=== PATIENT | female | born 1990 | race American Indian/Alaskan Native ===

== ENCOUNTER 2021-12-04 11:19 | Emergency (ER) | payer SELFPAY ==
--- NOTE | 2021-12-04 13:18 | Emergency Department Report ---
ED Female HPI - General Chief complaint: Vaginal Bleeding Stated complaint: BLEEDING Time Seen by Provider: 12/04/21 13:13 Source: patient Mode of arrival: Ambulatory Limitations: No Limitations - History of Present Illness Initial comments: Patient is a 31-year-old female that comes to the emergency room with vaginal bleeding. She found out that she was on Wednesday. This is her first . She has not seen an ENGINEERING ASSISTANT. She denies abdominal pain. Denies vaginal discharge. Denies back pain. She is ambulatory, nontoxic no [id number] on arrival. MD Complaint: vaginal bleeding -: Sudden Severity: mild Severity scale (0 -10): 2 Worsens with: none Are you Now?: Yes Associated Symptoms: denies other symptoms, vaginal bleeding. denies: vaginal discharge, abdominal pain, nausea/vomiting, fever/chills, headaches, loss of appetite, dysuria, hematuria, rash, seizure, shortness of breath, syncope, weakness - Related Data Sexually active: Yes Home Medications Medication Instructions Recorded Confirmed Last Taken No Known Home Medications [No 12/04/21 12/04/21 Unknown Reported Home Medications] Allergies Allergy/AdvReac Type Severity Reaction Status Date / Time No Known Allergies Allergy Verified 12/04/21 16:47 ED Review of Systems ROS: Stated complaint: BLEEDING Other details as noted in HPI Comment: All other systems reviewed and negative ED Past Medical Hx - Past Medical History Previous Medical History?: No - Surgical History Past Surgical History?: No - Family History Family history: no significant - Social History Smoking Status: Never Smoker Substance Use Type: None - Medications Home Medications: Home Medications Medication Instructions Recorded Confirmed Last Taken Type No Known Home Medications [No 12/04/21 12/04/21 Unknown History Reported Home Medications] ED Physical Exam - General Limitations: No Limitations General appearance: alert, in no apparent distress - Head Head exam: Present: atraumatic, normocephalic - Eye Eye exam: Present: normal appearance - ENT ENT exam: Present: mucous membranes moist - Neck Neck exam: Present: normal inspection - Respiratory Respiratory exam: Present: normal lung sounds bilaterally. Absent: respiratory distress - Cardiovascular Cardiovascular Exam: Present: regular rate, normal rhythm. Absent: systolic murmur, diastolic murmur, rubs, gallop - GI/Abdominal GI/Abdominal exam: Present: soft, normal bowel sounds - Extremities Exam Extremities exam: Present: normal inspection - Back Exam Back exam: Present: normal inspection - Neurological Exam Neurological exam: Present: alert, oriented X3 - Psychiatric Psychiatric exam: Present: normal affect, normal mood - Skin Skin exam: Present: warm, dry, intact, normal color. Absent: rash ED Course Vital Signs 12/04/21 12/04/21 11:33 16:44 Temperature 97 F L 97.9 F Pulse Rate 90 88 Respiratory 18 20 Rate Blood Pressure 151/64 124/78 [Right] O2 Sat by Pulse 99 100 Oximetry ED Medical Decision Making - Lab Data Result diagrams: 12/04/21 13:20 12/04/21 13:20 - Radiology Data Radiology results: report reviewed, image reviewed IUP - Medical Decision Making Vital Signs 12/04/21 11:33 Temperature 97 F L Pulse Rate 90 Respiratory 18 Rate Blood Pressure 151/64 [Right] O2 Sat by Pulse 99 Oximetry Labs 12/04/21 12/04/21 12/04/21 13:20 13:20 13:20 WBC 10.1 RBC 5.02 Hgb 14.1 Hct 42.3 MCV 84 MCH 28 MCHC 33 RDW 13.7 Plt Count 289 Sodium 136 L Potassium 4.0 Chloride 100.8 Carbon Dioxide 25 Anion Gap 14 BUN 4 L Creatinine 0.7 Estimated GFR > 60 BUN/Creatinine Ratio 6 Glucose 90 Calcium 9.9 Total Bilirubin 0.30 AST 12 ALT 16 Alkaline Phosphatase 67 Total Protein 7.0 Albumin 4.7 Albumin/Globulin Ratio 2.0 HCG, Quant Urine Color Urine Turbidity Urine pH Ur Specific [place] Urine Protein Urine Glucose (UA) Urine Ketones Urine Blood Urine Nitrite Urine Bilirubin Urine Urobilinogen Ur Leukocyte Esterase Urine WBC (Auto) Urine RBC (Auto) U Epithel Cells (Auto) Urine HCG, Qual Blood Type O POSITIVE Ord Rhogam Gestat Weeks Rh pos 12/04/21 12/04/21 13:20 Unknown WBC RBC Hgb Hct MCV MCH MCHC RDW Plt Count Sodium Potassium Chloride Carbon Dioxide Anion Gap BUN Creatinine Estimated GFR BUN/Creatinine Ratio Glucose Calcium Total Bilirubin AST ALT Alkaline Phosphatase Total Protein Albumin Albumin/Globulin Ratio HCG, Quant 94581 H Urine Color Straw Urine Turbidity Clear Urine pH 8.0 H Ur Specific [place] 1.010 Urine Protein <15 mg/dl Urine Glucose (UA) Neg Urine Ketones Neg Urine Blood Sm Urine Nitrite Neg Urine Bilirubin Neg Urine Urobilinogen < 2.0 Ur Leukocyte Esterase Neg Urine WBC (Auto) < 1.0 Urine RBC (Auto) 1.0 U Epithel Cells (Auto) 5.0 Urine HCG, Qual Positive A Blood Type Ord Rhogam Gestat Weeks Patient has been informed of the results of her test. IUP with no ectopic. Rh+. Patient has minimalvaginal bleeding. Patient being discharged home with discharge plan of care including diet, activity, medications and follow-up. Patient understands that she needs to see ENGINEERING ASSISTANT in 48 hours for recheck of her beta quant. She has been advised on pelvic rest and use of Tylenol for pain. She verbalizes understanding On discharge patient ambulatory, not ill nontoxic taking p.o. and in no acute distress - Differential Diagnosis ro preg/ectopic/ab Critical care attestation.: If time is entered above; I have spent that time in minutes in the direct care of this critically ill patient, excluding procedure time. ED Disposition Clinical Impression: Vaginal bleeding during Disposition: 01 HOME / SELF CARE / HOMELESS Is pt being admited?: No Does the pt Need Aspirin: No Condition: Stable Instructions: Vaginal Bleeding During , First Trimester Additional Instructions: Pelvic rest Diet and activity as tolerated Tylenol for pain Stay well-hydrated Follow-up with ENGINEERING ASSISTANT IN 48 HOURS FOR RECHECK. Have given you referral below. Referrals: PRIMARY CARE, [Primary Care Provider] - 3-5 Days SILVESTRE PATEL MD [Staff Physician] - 3-5 Days Time of Disposition: 13:51
[2021-12-04 13:34] LABS: Hematocrit 42.3 % (30.3-42.9); Hemoglobin 14.1 gm/dl (10.1-14.3); Mean Corpuscular HGB Conc 33 % (30-34); Mean Corpuscular Volume 84 fl (79-97); Platelet Count 289 K/mm3 (140-440); Red Blood Count 5.02 M/mm3 (3.65-5.03); Red Cell Distribution Width 13.7 % (13.2-15.2)
[2021-12-04 14:32] LABS: BUN/Creatinine Ratio 6; Blood Urea Nitrogen 4 mg/dL (7-17); Calcium 9.9 mg/dL (8.4-10.2)
[2021-12-04 14:33] LABS: Alanine Aminotransferase 16 units/L (7-56); Albumin 4.7 g/dL (3.9-5); Hemolysis Index 8
[2021-12-04 16:46] LABS: Bilirubin,Urine NEG (Negative); Blood,Urine SM (Negative); Color,Urine Straw (Yellow); Protein,Urine <15 mg/dL mg/dL (Negative); Urobilinogen,Urine < 2.0 mg/dL (<2.0); WBC,Urine < 1.0 /HPF (0.0-6.0)
[2021-12-04 16:47] VITALS: BP 124/78
[2021-12-04 16:50] LABS: HCG Qualitative,Urine Positive (Negative)
--- NOTE | 2021-12-04 16:50 | Ultrasound Report ---
ULTRASOUND OBSTETRIC INDICATION / CLINICAL INFORMATION: abd pain. Clinical Gestational Age (GA) in weeks, days: Unknown TECHNIQUE: Transabdominal and Transvaginal. COMPARISON: None available. FINDINGS: GESTATIONAL SAC: Well-defined oval shape and intrauterine in location. YOLK SAC: No significant abnormality. EMBRYO/FETUS: No significant abnormality. - [place]-Rump Length = 0.9 cm = 7, 0 weeks, days - Heart Rate, beats per minute (if present) = 133 ADNEXA: No significant abnormality. FREE FLUID: None. ADDITIONAL FINDINGS: Small subchorionic hemorrhage. IMPRESSION: 1. Single, living intrauterine with estimated sonographic age of 7, 0 weeks, days. 2. There is a small subchorionic hemorrhage. Signer Name: Harsha Zamudio DO Signed: 12/04/2021 4:45 PM Workstation Name: [id number]
--- NOTE | 2021-12-04 16:50 | Ultrasound Report ---
ULTRASOUND OBSTETRIC INDICATION / CLINICAL INFORMATION: abd pain. Clinical Gestational Age (GA) in weeks, days: Unknown TECHNIQUE: Transabdominal and Transvaginal. COMPARISON: None available. FINDINGS: GESTATIONAL SAC: Well-defined oval shape and intrauterine in location. YOLK SAC: No significant abnormality. EMBRYO/FETUS: No significant abnormality. - [place]-Rump Length = 0.9 cm = 7, 0 weeks, days - Heart Rate, beats per minute (if present) = 133 ADNEXA: No significant abnormality. FREE FLUID: None. ADDITIONAL FINDINGS: Small subchorionic hemorrhage. IMPRESSION: 1. Single, living intrauterine with estimated sonographic age of 7, 0 weeks, days. 2. There is a small subchorionic hemorrhage. Signer Name: Harsha Zamudio DO Signed: 12/04/2021 4:45 PM Workstation Name: [id number]
== END 2021-12-04 17:30 | disposition home or self-care (01) ==
LOC: ED 11:19
DX: O20.8 Other hemorrhage in early pregnancy (principal); Z3A.01 Less than 8 weeks gestation of pregnancy
CPT/HCPCS: 36415; 76801; 76817; 80053; 81001; 81025; 84702; 85027; 86900; 86901; 99284